=== PATIENT | female | born 1980 | race Caucasian/White ===

== ENCOUNTER 2023-09-20 11:06 | Day surgery (SDC) | payer BC ==
[~2023-09-20 11:06] MED LIST: LIDOCAINE 1% (10MG/ML) FOR IV START INTRADERMA PRN
[2023-09-20] MEDS: LACTATED RINGERS 1,000 ML IV SCH ×2 (11:50→12:53)
[2023-09-20 12:15] VITALS: RESP 16; TEMP 97.3
[2023-09-20] MEDS ORDERED: PROPOFOL 10 MG/ML 20 ML VIAL IV ONE (12:57)
--- NOTE | 2023-09-20 13:11 | P.PCN ---
Date of Procedure: 09/20/23 Procedure(s) Performed: BRIEF HISTORY: Patient is a 42-year-old pleasant white female scheduled for an elective colonoscopy as a part of the for colon cancer and family history of colon cancer. PROCEDURE PERFORMED: Colonoscopy with biopsy. PREOPERATIVE DIAGNOSIS: Screening for colon cancer and family history of colon cancer. IV sedation per Anesthesia. PROCEDURE: After informed consent was obtained, the patient, was brought into the endoscopy unit. IV sedation was administered by Anesthesia under continuous monitoring. Digital rectal examination was normal. Initially the Olympus CF-160 flexible video colonoscope was then inserted in the rectum, gradually advanced into the cecum without any difficulty. Careful examination was performed as the scope was gradually being withdrawn. Ileocecal valve and the appendiceal orifice were visualized and appeared normal. Prep was excellent. Mucosa of the cecum, ascending colon, appeared normal. In the transverse colon there was a 3 mm polyp that was removed by cold biopsy. Scattered right-sided diverticulosis seen. Rest of the transverse colon, descending colon, sigmoid colon, and rectum appeared normal. Retroflexion was performed in the rectum and no lesions were seen. The patient tolerated the procedure well. IMPRESSION: 3 mm transverse colon polyp status post cold biopsy Scattered right-sided diverticulosis RECOMMENDATIONS: Findings of this examination were discussed with the patient as well as a family.. Is advised to follow with the biopsy results and if the biopsy result she can have a repeat coloscopy in 5 years.
[2023-09-20 13:36] VITALS: BP 126/77; PULSE 70
== END 2023-09-20 13:59 | disposition home or self-care (01) ==
LOC: ORWHC2ENDO 11:06
PROVIDERS: ATTEND Internal Medicine Gastroenterology
DX: Z12.11 Encounter for screening for malignant neoplasm of colon (principal); D12.3 Benign neoplasm of transverse colon; K57.30 Diverticulosis of large intestine without perforation or abscess without bleeding; J30.2 Other seasonal allergic rhinitis; Z79.1 Long term (current) use of non-steroidal anti-inflammatories (NSAID); Z80.0 Family history of malignant neoplasm of digestive organs
CPT/HCPCS: 45380; 88305; J2704